=== PATIENT | male | born 1995 | race Caucasian/White ===

== ENCOUNTER 2016-09-25 22:47 | Emergency (ER) | payer MEDICARE, OTHER ==
[2016-09-25 22:54] VITALS: RESP 16
[2016-09-25] MEDS ORDERED: SODIUM CHLORIDE 0.9% 500 ML IV STA (22:54)
[2016-09-25 22:55] LABS: Glucose,Whole Blood 126 mg/dL (75-99)
--- NOTE | 2016-09-25 23:07 | ED ---
Seizure HPI - General Chief Complaint: Seizure Stated Complaint: Seizure, fall-no head injury Time Seen by Provider: 09/25/16 22:54 Source: patient, family (Father), EMS Mode of arrival: EMS - History of Present Illness Initial Comments: This patient is a 20-year-old man who does have history of seizures, presenting after he had what sounds like a tonic-clonic seizure tonight. The patient states father is here and also gives history. He states that his last seizure was probably 5-6 years ago. He does take Keppra and they state that he is for the most part compliant with his medications. The patient states that he missed his dose today but father states he usually takes some medicine at night anyways. The patient did have a tonic-clonic seizure lasting approximately 1 minute. The patient denies any pain or injury. The patient's father states that he is beginning to appear like his usual self. He does see Dr. Turk. DUVALL Complaint: seizure -: minutes(s) Description of Episode: tonic-clonic movement Duration of Episode: 1 -: minutes(s) Witnessed: yes - by bystander Trauma: No Seizure History: known seizure disorder Place: home Possible Precipitating Event: none Associated Symptoms: denies other symptoms Treatments Prior to Arrival: none - Related Data Home Medications Medication Instructions Recorded Confirmed Primidone [Mysoline] 75 mg PO HS 09/25/16 09/25/16 levETIRAcetam [Keppra] 1,000 mg PO HS 09/25/16 09/25/16 Allergies Allergy/AdvReac Type Severity Reaction Status Date / Time No Known Allergies Allergy Verified 09/25/16 23:09 Review of Systems ROS Statement: Those systems with pertinent positive or pertinent negative responses have been documented in the HPI. ROS Other: All systems not noted in ROS Statement are negative. Constitutional: Denies: fever, weakness Eyes: Denies: vision change Respiratory: Denies: cough, dyspnea Cardiovascular: Denies: chest pain, palpitations Gastrointestinal: Denies: abdominal pain, vomiting, diarrhea Musculoskeletal: Denies: back pain Neurological: Denies: headache, weakness, numbness, paresthesias Past Medical History Past Medical History: Seizure Disorder History of Any Multi-Drug Resistant Organisms: None Reported Past Surgical History: No Surgical Hx Reported Past Psychological History: Anxiety Smoking Status: Never smoker Past Alcohol Use History: None Reported Past Drug Use History: None Reported General Exam General appearance: alert, in no apparent distress Head exam: Present: atraumatic, normocephalic, normal inspection Eye exam: Present: normal appearance. Absent: scleral icterus, conjunctival injection ENT exam: Present: normal oropharynx Neck exam: Present: normal inspection, full ROM. Absent: meningismus Respiratory exam: Present: normal lung sounds bilaterally. Absent: respiratory distress, wheezes, rales, rhonchi, stridor Cardiovascular Exam: Present: regular rate, normal rhythm, normal heart sounds. Absent: systolic murmur, diastolic murmur, rubs, gallop GI/Abdominal exam: Present: soft. Absent: distended, tenderness, guarding, rebound, mass Extremities exam: Present: normal inspection, normal capillary refill. Absent: pedal edema, calf tenderness Back exam: Present: normal inspection. Absent: CVA tenderness (R), CVA tenderness (L) Neurological exam: Present: alert, oriented X3, CN II-XII intact. Absent: motor sensory deficit Skin exam: Present: warm, intact, diaphoretic, pallor. Absent: rash Course Vital Signs 09/25/16 09/25/16 22:50 23:46 Temperature 98.6 F Pulse Rate 98 85 Respiratory 16 16 Rate Blood Pressure 136/60 129/78 O2 Sat by Pulse 95 98 Oximetry Medical Decision Making - Medical Decision Making As the patient's mental status returned to his baseline he was able to recall that he had indeed missed probably 2-3 days worth of his Keppra dosing. We did give him a loading dose here and he will resume his scheduled Keppra dosing. He is feeling like he would like to go home. He will follow up with his neurologist Dr. Duran. Return parameters also discussed. - Lab Data Result diagrams: 09/25/16 23:00 09/25/16 23:00 Lab Results 09/25/16 09/25/16 09/25/16 Range/Units 22:52 23:00 23:00 WBC 11.6 H (3.8-10.6) k/uL RBC 4.62 (4.30-5.90) m/uL Hgb 14.0 (13.0-17.5) gm/dL Hct 43.9 (39.0-53.0) % MCV 95.0 (80.0-100.0) fL MCH 30.4 (25.0-35.0) pg MCHC 32.0 (31.0-37.0) g/dL RDW 12.4 (11.5-15.5) % Plt Count 257 (150-450) k/uL Neutrophils % 43 % Lymphocytes % 39 % Monocytes % 7 % Eosinophils % 7 % Basophils % 1 % Neutrophils # 4.9 (1.3-7.7) k/uL Lymphocytes # 4.5 (1.0-4.8) k/uL Monocytes # 0.9 (0-1.0) k/uL Eosinophils # 0.9 H (0-0.7) k/uL Basophils # 0.1 (0-0.2) k/uL Sodium 149 H (137-145) mmol/L Potassium 3.5 (3.5-5.1) mmol/L Chloride 109 H (98-107) mmol/L Carbon Dioxide 15 L (22-30) mmol/L Anion Gap 25 mmol/L BUN 8 L (9-20) mg/dL Creatinine 1.10 (0.66-1.25) mg/dL Est GFR (MDRD) Af Amer >60 (>60 ml/min/1.73 sqM) Est GFR (MDRD) Non-Af >60 (>60 ml/min/1.73 sqM) Glucose 134 H (74-99) mg/dL POC Glucose (mg/dL) 126 H (75-99) mg/dL POC Glu [employer] ID Terrencekaren, Bruna Calcium 9.5 (8.4-10.2) mg/dL Total Bilirubin 0.6 (0.2-1.3) mg/dL AST 40 (17-59) U/L ALT 42 (21-72) U/L Alkaline Phosphatase 95 (38-126) U/L Total Protein 7.7 (6.3-8.2) g/dL Albumin 4.9 (3.5-5.0) g/dL - EKG Data -: EKG Interpreted by [facility] EKG shows normal: sinus rhythm (Rate 94 bpm), axis (Normal), intervals (QRS duration is 120 ms, other intervals normal), QRS complexes (Right bundle-branch block), ST-T waves (Normal) Rate: normal Disposition Clinical Impression: Generalized seizure Disposition: HOME SELF-CARE Condition: Good Instructions: Recurrent Seizures in Adults (ED) Referrals: Leonard Duran MD [STAFF PHYSICIAN] - 1-2 days
[2016-09-25 23:28] LABS: Basophils # (A) 0.1 k/uL (0-0.2); Basophils % (A) 1 %; CH 31.4; CHCM 33.2; Eosinophils # (A) 0.9 k/uL (0-0.7); Eosinophils % (A) 7 %; HCT 43.9 % (39.0-53.0); HDW 2.34; Luc # (Auto) 0.31; Luc % (Auto) 3; Lymphocytes # (A) 4.5 k/uL (1.0-4.8); Lymphocytes % (A) 39 %; MCH 30.4 pg (25.0-35.0); Mean Platelet Volume 7.8; Monocytes # (A) 0.9 k/uL (0-1.0); Monocytes % (A) 7 %; Neutrophils # (A) 4.9 k/uL (1.3-7.7); Neutrophils % (A) 43 %; RBC 4.62 m/uL (4.30-5.90); RDW 12.4 % (11.5-15.5); WBC 11.6 k/uL (3.8-10.6); WBC (Perox) 11.44
[2016-09-25 23:38] LABS: ALT 42 U/L (21-72); AST 40 U/L (17-59); Alkaline Phosphatase 95 U/L (38-126); Anion Gap 25 mmol/L; Blood Urea Nitrogen 8 mg/dL (9-20); Calcium 9.5 mg/dL (8.4-10.2); Carbon Dioxide 15 mmol/L (22-30); Chloride 109 mmol/L (98-107); Glucose 134 mg/dL (74-99); Non-African American GFR(MDRD) >60 (>60 ml/min/1.73 sqM); Potassium 3.5 mmol/L (3.5-5.1); Sodium 149 mmol/L (137-145); Total Bilirubin 0.6 mg/dL (0.2-1.3); Total Protein 7.7 g/dL (6.3-8.2)
[2016-09-26] MEDS ORDERED: levETIRAcetam 500 MG TAB PO STA (00:08)
[2016-09-26 00:37] VITALS: BP 118/74; PULSE 80; TEMP 98
== END 2016-09-26 00:36 | disposition home or self-care (01) ==
LOC: EC 22:47
DX: G40.409 Other generalized epilepsy and epileptic syndromes, not intractable, without status epilepticus (principal); I45.10 Unspecified right bundle-branch block; R61 Generalized hyperhidrosis; R23.1 Pallor; Z79.899 Other long term (current) drug therapy
CPT/HCPCS: 36415; 80053; 80177; 85025; 93005; 96360; 99284